=== PATIENT | male | born 1995 | race Caucasian/White ===

== ENCOUNTER 2024-08-19 17:45 | Emergency (ER) | payer SELFPAY ==
[2024-08-19 17:56] VITALS: BP 148/114
[2024-08-19 18:21] LABS: Urine Albumin 2+ (Neg - Trace); Urine Bilirubin Negative (Negative); Urine Character Slightly Cloudy (Clear); Urine Color Yellow; Urine Glucose Negative (Negative); Urine Ketone 1+ (Negative); Urine Leukocyte Negative (Negative); Urine Nitrite Negative (Negative); Urine Occult Blood Negative (Negative); Urine Specific Gravity 1.025 (<1.030); Urine Urobilinogen Negative (Neg - 1+)
[2024-08-19 18:24] LABS: % Eosinophils 2.7 % (0-6); % Immature Granulocytes 0.3 % (0-0.5); % Lymphocytes 27.5 % (20.5-51.1); % Monocytes 4.8 % (1.7-9.3); % Neutrophils 63.7 % (42.2-75.2); Absolute Basophils 0.1 10^3/uL (0-0.2); Absolute Eosinophils 0.3 10^3/uL (0-0.7); Absolute Lymphocytes 3.2 10^3/uL (1.2-3.4); Absolute Monocytes 0.6 10^3/uL (0.1-0.6); Absolute Neutrophils 7.3 10^3/uL (1.4-6.5); Hematocrit 39.7 % (39.0-52.0); Hemoglobin 13.2 g/dL (13.0-18.0); Mean Corp Hgb Conc. 33.2 g/dL (33.0-37.0); Mean Corpuscular Hgb 28.8 pg (27.0-31.0); Mean Corpuscular Volume 86.7 fL (80.0-94.0); Mean Platelet Volume 9.9 fL (7.4-10.4); Nucleated Red Blood Cells % 0 % (-); Platelet Count 265 10^3/uL (130-400); Red Blood Cell Count 4.58 10^6/uL (4.70-6.10); Red Cell Dist. Width 13.5 % (11.5-14.5); White Blood Cell Count 11.5 10^3/uL (4.8-10.8)
[2024-08-19 18:29] LABS: Urine Squamous Cell >30 /LPF (Few)
[2024-08-19 18:30] LABS: Urine Red Blood Cell 0-2 /HPF (0-2); Urine White Cell 0-2 /HPF (0-5)
[2024-08-19 18:31] LABS: Urine Bacteria Few (Negative)
[2024-08-19 18:39] LABS: HCG, Serum Qualitative Screen Negative
[2024-08-19 18:43] LABS: ALT (SGPT) 56 U/L (0-50); AST (SGOT) 81 U/L (17-59); Albumin 4.2 g/dl (3.5-5.0); Alkaline Phosphatase 128 U/L (38-126); Blood Urea Nitrogen 9 mg/dl (9-20); Calcium 10.1 mg/dl (8.4-10.2); Carbon Dioxide 26 mmol/L (22-30); Chloride 105 mmol/L (98-107); Glucose 105 mg/dl (70-99); Lipase 87 U/L (23-300); Potassium 4.3 mmol/L (3.5-5.1); Sodium 140 mmol/L (135-145); Total Bilirubin 0.5 mg/dl (0.2-1.3); Total Protein 7.6 g/dl (6.3-8.2); eGFR > 60.00
--- NOTE | 2024-08-19 21:29 | ED.GENMED ---
History of Present Illness
General
Chief Complaint: Abdominal Pain
Source: patient
Exam Limitations: none
Time Seen by Provider: 08/19/24 20:56
Nursing documentation reviewed up to this point in time: agreed with
History of Present Illness
History of Present Illness:
29-year-old assigned female at presents with right lower quadrant abdominal pain. She states she woke with the pain yesterday morning, and lasted 30 minutes then subsided. She states today the pain returned and has been persistent. She has
had nausea and vomited once after lunch at 230 this afternoon. No vomiting since. She states she has had 5 or 6 episodes of diarrhea today, 2 large amounts and 5 little squirts. She denies fever or chills. Her last diarrhea was an hour ago.
Past History
Past History
ED Past Medical History: GERD
ED Past Surgical History: Gynecological (Double mastectomy, hysterectomy), Tonsilectomy and Other
Patient has exhibited threatening behavior?: No
Social History
Tobacco: Non-smoker
Alcohol: None
Drug: None
Living: with family
Employment: Employed
Phy Exam
Physical Exam
Physical Exam:
GENERAL: No acute distress. A&Ox3.
CONSTITUTIONAL: Afebrile.
EYES: clear, conjunctivae normal
ENMT: moist mucus membranes, Pharynx nl
RESPIRATORY: Regular respirations, nonlabored, lungs clear.
CARDIOVASCULAR: Regular rate and rhythm, no murmurs, no rubs.
GI: Morbidly obese, mildly tender right side abdomen soft, normal BS
MUSCULOSKELETAL: Moves with ease. Well perfused.
SKIN: Warm, dry, normal
PSYCH: Normal mood and affect. Well kept, interactive and appropriate
NEUROLOGIC: Awake, alert and oriented. No focal neurological deficits
Course
Orders/Labs/Results
Orders:
Orders
08/19/24 18:01
Test Result ONCE
08/19/24 18:10
Complete Blood Count/With Diff Urgent
Comprehensive Metabolic Panel Urgent
HCG, Serum Qualitative Screen Urgent
Comment: Notify provider if positive test present
Lipase Urgent
Urinalysis Reflex To Culture Urgent
Date Specimen was Collected: 08/19/24
Time Specimen was Collected: 18:01
Urine Microscopic Reflex Cult Urgent
08/19/24 21:29
CT Abd/Pel (IV only)-DH only Urgent
Comment:
Reason For Exam: right side abd pain, n/v/d
08/19/24 21:30
Ondansetron Injectable [Zofran] 4 mg IV NOW STA
Abnormal Lab Results
08/19/24
18:10
WBC 11.5 H 10^3/uL
(4.8-10.8)
RBC 4.58 L 10^6/uL
(4.70-6.10)
Absolute Neuts (auto) 7.3 H 10^3/uL
(1.4-6.5)
Glucose 105 H mg/dl
(70-99)
AST 81 H U/L
(17-59)
ALT 56 H U/L
(0-50)
Alkaline Phosphatase 128 H U/L
(38-126)
Urine Ketones 1+ A
(Negative)
Urine Bacteria (Reflex) Few A
(Negative)
Urine Albumin (Reflex) 2+ A
(Neg - Trace)
08/19/24 18:10
08/19/24 18:10
Vital Signs
Initial and Last Documented VS:
Initial Vital Signs
Temp Pulse Resp BP
98.6 F 93 16 148/114
08/19/24 17:56 08/19/24 17:56 08/19/24 17:56 08/19/24 17:56
Last Documented Vital Signs
Temp Pulse Resp BP Pulse Ox
98.6 F 88 20 156/80 98
08/19/24 17:56 08/19/24 21:43 08/19/24 21:43 08/19/24 21:43 08/19/24 21:43
MDM/Problems Addressed
Differential Diagnosis Includes:
Viral gastroenteritis, appendicitis, diverticulitis
MDM/Problems Addressed:
29-year-old assigned female at presents with right lower quadrant abdominal pain. She states she woke with the pain yesterday morning, and lasted 30 minutes then subsided. She states today the pain returned and has been persistent. She has
had nausea and vomited once after lunch at 230 this afternoon. No vomiting since. She states she has had 5 or 6 episodes of diarrhea today, 2 large amounts and 5 little squirts. She denies fever or chills. Her last diarrhea was an hour ago.
11:15 PM:
CBC normal
CMP with minimal elevation of liver enzymes most likely reactive
CT abdomen pelvis: No significant acute abnormality identified
This is most likely viral gastroenteritis.
ED Attending Note
-
Portions of this chart may have been created with voice recognition software.� Occasional wrong word or��sound alike� substitutions may have occurred due to the inherent limitations of voice recognition software.
Discharge Plan
Departure
Prescriptions:
No Action
ondansetron 4 MG tablet,disintegrating
4 mg PO TIDPRN PRN (Reason: nausea/vomiting) Qty: 15 0RF
ibuprofen 600 mg tablet
600 mg PO QID PRN (Reason: Pain) Qty: 20 0RF
Referrals:
NONE,* [Family Provider] -
Interventions
Interventions:
*Risk Screen - Suicide Last Done: 08/19/24 18:03
*General Assessment Last Done: 08/19/24 21:03
*Neglect/Abuse Screening Last Done: 08/19/24 18:03
QU-Nkcguv-Vhukwxjmoq Assessment Last Done: 08/19/24 20:49
Discharge Date and Time
Print Language: AFGHAN
[2024-08-19 21:43] VITALS: BP 156/80
[2024-08-19] MEDS: ZOFRAN 4 MG IV (22:02)
[2024-08-19 23:40] VITALS: BP 155/90
== END 2024-08-19 23:41 | disposition home or self-care (01) ==
LOC: EMR 17:45
PROVIDERS: Emergency Medicine; EMERGENCY PHYSICIAN Student in an Organized Health Care Education/Training Program
DX: R19.7 Diarrhea, unspecified (principal); R11.2 Nausea with vomiting, unspecified; R10.31 Right lower quadrant pain; R74.8 Abnormal levels of other serum enzymes
CPT/HCPCS: 99284; 96374; 74177; 80053; 81003; 81015; 83690; 84703; 85025; Q9967

== ENCOUNTER 2025-03-31 23:44 | Emergency (ER) | payer MEDICAID, SELFPAY ==
[2025-03-31 23:47] VITALS: BP 162/109
[2025-04-01 01:09] VITALS: BMI 50.8
[2025-04-01 01:35] LABS: Hematocrit 38.0 % (39.0-52.0); Hemoglobin 12.7 g/dL (13.0-18.0); Mean Corp Hgb Conc. 33.4 g/dL (33.0-37.0); Mean Corpuscular Volume 84.8 fL (80.0-94.0); Nucleated Red Blood Cells % 0 % (-); Platelet Count 262 10^3/uL (130-400); Red Cell Dist. Width 14.4 % (11.5-14.5)
[2025-04-01 02:00] LABS: ALT (SGPT) 17 U/L (0-50); AST (SGOT) 21 U/L (17-59); Albumin 4.5 g/dl (3.5-5.0); Alkaline Phosphatase 134 U/L (38-126); Blood Urea Nitrogen 12 mg/dl (9-20); Calcium 9.6 mg/dl (8.4-10.2); Carbon Dioxide 26 mmol/L (22-30); Chloride 105 mmol/L (98-107); Estimated Creatinine Clearance > 125 ml/min; Glucose 89 mg/dl (70-99); Lipase 85 U/L (23-300); Potassium 4.0 mmol/L (3.5-5.1); Sodium 137 mmol/L (135-145); Total Protein 8.0 g/dl (6.3-8.2); eGFR > 60.00
[2025-04-01] MEDS: TORADOL 15 MG IV (02:58)
--- NOTE | 2025-04-01 03:08 | ED.GENMED ---
History of Present Illness
General
Chief Complaint: Back Pain
Source: patient
Exam Limitations: none
Time Seen by Provider: 04/01/25 02:53
Nursing documentation reviewed up to this point in time: agreed with
History of Present Illness
History of Present Illness:
29-year-old transgender male with past medical history of GERD, anxiety, depression, presents to the ER today with concerns of right sided abdominal pain, reminiscent of prior gallbladder attack. He reports that stabs to the back and down in the
lower abdomen. This episode began a few days ago on Saturday, the day after [employer]. Initially, the pain was milder described mainly mainly as stomach cramps and was bearable when he ate. However the pain exacerbated today around 1:00 really
pain predominantly in the right lower portion of the abdomen. Patient does have a history of a total hysterectomy. Has been on testosterone for many years but has not had any recent doses the past few months. He has not noticed any groin pain,
blood in the urine, chest pain, shortness of breath. Nausea but no vomiting. No sick contacts. Been eating and drinking okay. Was told she had a angry gallbladder in the past but has not had any surgery consultation has seen GI multiple years
ago for reflux but is never had a formal endoscopy.
Past History
Past History
ED Past Medical History: GERD
ED Past Surgical History: Gynecological (Double mastectomy, hysterectomy), Tonsilectomy and Other
Patient has exhibited threatening behavior?: No
Social History
Tobacco: Non-smoker
Alcohol: None
Drug: None
Personal: Single
Living: with family
Employment: Employed
Review of Systems
Review of Systems
All Other Systems: ROS reviewed and negative except as documented in HPI and ROS
Phy Exam
Physical Exam
Physical Exam:
General: Patient is well appearing and in no acute distress; non-toxic
Skin: Warm and dry, no rashes or lesions
Head: Normocephalic, atraumatic
Eyes: Sclera non-icteric. EOMs intact.
Cardiac: Regular rate and rhythm, no murmur
Peripheral Vascular: No lower extremity swelling or edema
Pulm: Normal respiratory effort, no wheezes, rales, rhonchi
Abdomen: Tenderness palpation in the right lower abdomen, no palpable abdominal masses, no abdominal distention, no rebound tenderness, no CVA tenderness bilaterally
Neuro: CN II-XII intact, no focal neurologic deficits.
Psychiatric: Appropriate mood and affect.
Course
Orders/Labs/Results
Orders:
Orders
04/01/25 01:28
CMP [Comprehensive Metabolic Panel] Urgent
Complete Blood Count/With Diff Urgent
Lipase Urgent
04/01/25 02:54
Ketorolac [Toradol] 15 mg IV NOW STA
04/01/25 02:55
CT Abd/pelvis W Iv Cont Urgent
Comment:
Reason For Exam: right sided abdominal pain
04/01/25 04:55
Dicyclomine [Bentyl] 20 mg PO NOW STA
Abnormal Lab Results
04/01/25
01:28
WBC 10.9 H 10^3/uL
(4.8-10.8)
RBC 4.48 L 10^6/uL
(4.70-6.10)
Hgb 12.7 L g/dL
(13.0-18.0)
Hct 38.0 L %
(39.0-52.0)
Abs Immat Gran (auto) 0.1 H 10^3/uL
(0-0.05)
Absolute Neuts (auto) 7.1 H 10^3/uL
(1.4-6.5)
Alkaline Phosphatase 134 H U/L
(38-126)
04/01/25 01:28
04/01/25 01:28
Vital Signs
Initial and Last Documented VS:
Initial Vital Signs
Temp Pulse Resp BP Pulse Ox
98.7 F 84 20 162/109 98
03/31/25 23:47 03/31/25 23:47 03/31/25 23:47 03/31/25 23:47 03/31/25 23:47
Last Documented Vital Signs
Temp Pulse Resp BP Pulse Ox
98.7 F 100 20 155/99 98
03/31/25 23:47 04/01/25 05:33 04/01/25 05:33 04/01/25 05:33 04/01/25 05:33
MDM/Problems Addressed
Differential Diagnosis Includes:
Appendicitis, biliary colic, acute cholecystitis, nephrolithiasis, IBS, gastritis
MDM/Problems Addressed:
29-year-old male presents to ER today with concerns of abdominal pain for the past few days with associated nausea. Radiates to the back. Reminiscent of prior gallbladder attacks. Physical exam is well-appearing no acute distress. Vital signs
are stable. He is afebrile. Does have some palp quadrant. Has had ovaries removed in the past.
Labs reviewed: CBC unremarkable, CMP unremarkable, total bilirubin normal and LFTs normal.
Imaging review: No evidence of renal stones, gallbladder unremarkable, no acute disease, may be possible component of mild enterocolitis
Reviewed findings with patient. Etiology remains unclear at this time could be a enteric colitis versus IBS/gastritis. Will send prescription for Benadryl to use as needed for cramping type pain. Patient feels well at this time. Pain relief
noted with Toradol. Prescription for nausea. No vomiting noted. Advise follow-up with GI however patient lacks insurance, discussed follow-up with the [facility] clinic discussed strict return precautions. Patient stable for discharge.
Chronic conditions affecting care:
GERD
*Pulse Oximetry
SaO2: 98
Oxygen Mode of Delivery: Room air
Patient hypoxic: no
*Critical Care Note
Total Time (30-74mins, 75-104mins- exclusive of procedures): Not Applicable
ED Attending Note
-
Portions of this chart may have been created with voice recognition software.� Occasional wrong word or��sound alike� substitutions may have occurred due to the inherent limitations of voice recognition software.
Discharge Plan
Departure
Patient Disposition: Home (Routine Discharge)
Date of Disposition: 04/01/25
Time of Disposition: 05:08
Patient with high blood pressure during this ER visit?: Yes
Condition: Good
Discharge Problem:
Abdominal pain
Instructions: Abdominal pain in adults - ED (DC), BLOOD PRESSURE
Prescriptions:
New
dicyclomine 20 mg tablet
20 mg PO TID Qty: 10 0RF
No Action
ondansetron 4 MG tablet,disintegrating
4 mg PO TIDPRN PRN (Reason: nausea/vomiting) Qty: 15 0RF
ibuprofen 600 mg tablet
600 mg PO QID PRN (Reason: Pain) Qty: 20 0RF
Referrals:
NONE,* [Family Provider, Internal Medicine]
Charlotte Nunez, [Active, Gastroenterology] - Call in 1-3 days for appt
Stand Alone Forms: Return to Work
Activity Restrictions/Additional Instructions:
As discussed, I would speak to your primary care provider for follow-up in 1 week for reassessment and to inquire about coverage to see gastroenterology.
I would stick to a bland food diet for the next few days, small frequent meals.
You can take ibuprofen as needed for abdominal pain. For abdominal cramping or spastic persistent pain, you can try 1 dose of Bentyl. You can take 1 tablet up to 3 times daily.
Please continue to monitor symptoms. Please Return to ER Should You Develop Dark Tarry Stools, Rectal Bleeding, Acute Worsening of Her Symptoms, Intractable Nausea or Vomiting, Chest Pain, Shortness of Breath, or Any Other Signs or Symptoms
Worrisome to You
Interventions
Interventions:
*Risk Screen - Suicide Last Done: 03/31/25 23:47
*General Assessment Last Done: 04/01/25 01:06
*Neglect/Abuse Screening Last Done: 04/01/25 01:19
*ED COVID-19 Vaccine History Last Done: 04/01/25 01:06
*ED Influenza Vaccine History Last Done: 04/01/25 01:06
[facility] Fall Risk Assessment Tool Last Done: 04/01/25 01:08
*Nursing Disposition Last Done: 04/01/25 05:33
ED-Musculoskeletal Assessment Last Done: 04/01/25 01:08
Discharge Date and Time
Discharge Date/Time: 04/01/25 05:34
Print Language: MACEDONIAN
[2025-04-01] MEDS: BENTYL 20 MG PO (05:17)
[2025-04-01 05:33] VITALS: BP 155/99
== END 2025-04-01 05:34 | disposition home or self-care (01) ==
LOC: EMR 23:44
PROVIDERS: Physician Assistant; EMERGENCY PHYSICIAN Emergency Medicine
DX: R10.30 Lower abdominal pain, unspecified (principal); K21.9 Gastro-esophageal reflux disease without esophagitis; R11.0 Nausea
CPT/HCPCS: 99284; 96374; 74177; 80053; 83690; 85025; Q9967